=== PATIENT | female | born 1975 | race Caucasian/White ===

== ENCOUNTER 2017-08-08 08:30 | Emergency (ER) | payer OTHER ==
[~2017-08-08 08:30] MED LIST: ACET-1966 PO; CALC500T42 PO; CEP500 PO; CEPH-13 PO; CIPR-344 PO; CYC10 PO; CYCL10TA29 PO; DICY-42 PO; ERG400 PO; FERR27TA3 PO; FLAX100042 PO; HYDR-3250 PO; KET10 PO; LOR5/325 PO; MULT-1335 PO; ONDA4TAB PO; PER PO; PRE20 PO; PROM-110 PO; VITA1CAP46 PO
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
[2017-08-08] MEDS ORDERED: fentaNYL CITR 100 MCG/2 ML AMP IVP ONE (10:05)
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
[2017-08-08 11:00] VITALS: BP 125/65
[2017-08-08] MEDS ORDERED: LOR5/325 PO (11:44)
[2017-08-08] MEDS ORDERED: DIA5 PO (11:49)
[2017-08-08] MEDS ORDERED: APAP/HYDROCODONE 325/5 TAB PO ONE (11:50)
== END 2017-08-08 11:54 | disposition home or self-care (01) ==
LOC: ER 08:30
DX: S52.292A Other fracture of shaft of left ulna, initial encounter for closed fracture (principal); V43.52XA Car driver injured in collision with other type car in traffic accident, initial encounter
CPT/HCPCS: 29125; 70450; 71045; 72125; 73060; 73080; 73090; 73110; 84703; 96374; 99284; A4565; J3010

== ENCOUNTER 2017-10-10 22:59 | Emergency (ER) | payer SELFPAY ==
[~2017-10-10 22:59] MED LIST changes: +DIA5 PO
[2017-10-10] MEDS ORDERED: predniSONE 20 MG TAB PO ONE (23:25)
[2017-10-10] MEDS ORDERED: diphenhydrAMINE 25 MG CAP PO ONE (23:25)
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
[2017-10-10] MEDS ORDERED: METH4TAB66 PO (23:28)
[2017-10-10 23:45] VITALS: BP 105/73
[2017-10-11] MEDS ORDERED: METH4TAB66 PO (00:11)
== END 2017-10-10 23:48 | disposition home or self-care (01) ==
LOC: ER 23:12
DX: L50.9 Urticaria, unspecified (principal)
CPT/HCPCS: 99283; J7512; Q0163

== ENCOUNTER 2017-12-20 15:36 | Emergency (ER) | payer SELFPAY ==
[~2017-12-20 15:36] MED LIST changes: +METH4TAB66 PO
--- NOTE | 2017-12-20 15:40 | ER Report ---
History and Physical Time Seen By MD: 15:39 HPI/ROS CHIEF COMPLAINT: Left upper dental fracture HISTORY OF PRESENT ILLNESS: Patient is a 42-year-old female with poor dentition here with complaints of left upper dental pain for the past several days and facial swelling on left side. Patient reports that the symptoms have worsened over the past several days however today she sought evaluation due to increased swelling of the face. Patient has not attempted to obtain dentistry evaluation due to lack of access. Patient is afebrile, hemodynamically stable at time of evaluation. REVIEW OF SYSTEMS: ENT: + dental fracture with surrounding edema and tenderness Respiratory: No cough, no dyspnea. Neuro: No focal neuro deficits Allergies: Coded Allergies: promethazine (Verified Adverse Reaction, Intermediate, 08/08/17) Uncoded Allergies: HAYFEVER (Allergy, Mild, UNKNOWN, 10/09/11) Home Meds Active Scripts Tramadol Hcl (TRAMADOL HCL) 50 Mg Tablet, 50 MG PO Q6H Y for PAIN, #12 TAB 0 Refills Prov:FALL,DANA S DO 12/20/17 Penicillin V Potassium 500 Mg Tab (PENICILLIN V POTASSIUM 500 MG TAB) 500 Mg Tablet, 500 MG PO QID for 7 Days, #28 TAB Prov:FALL,DANA S DO 12/20/17 Discontinued Scripts Methylprednisolone (METHYLPREDNISOLONE) 4 Mg Tab.ds.pk, 4 MG PO DIRECTED, #1 TAB Prov:LAURORA,RADHA V DO 10/11/17 Methylprednisolone (METHYLPREDNISOLONE) 4 Mg Tab.ds.pk, 4 MG PO DIRECTED, #1 TAB Prov:LAURORA,RADHA V DO 10/10/17 Hx Smoking: Yes Smoking Status: Current: Every Day Smoker Hx Substance Use Disorder: No Hx Alcohol Use: Yes (RARE) Constitutional Vital Sign - Last 24 Hours 12/20/17 12/20/17 12/20/17 12/20/17 15:39 15:40 15:46 15:54 Temp 98.2 Pulse 72 92 Resp 20 B/P (MAP) 145/71 (95) 145/71 136/82 (100) Pulse Ox 95 96 O2 Delivery Room Air 12/20/17 12/20/17 16:00 16:03 B/P (MAP) 125/55 (78) 123/85 (98) Physical Exam General Appearance: The patient is alert, has no immediate need for airway protection and no current signs of toxicity. Moderate distress secondary to pain ENT: + Poor dentition, dental carries and fracture of left upper tooth with mild edema Eyes: Pupils equal and round no injection. Skin: No rashes or lesions. Neuro: No focal neuro deficits DIFFERENTIAL DIAGNOSIS: After history and physical exam differential diagnosis was considered for dental fracture, dental Carries, dental abscess Medical Decision Making ED Course/Re-evaluation ED Course Patient is a 42-year-old female here with complaints of dental pain which has become severe the past several days making it difficult to chew food. Today she reports having left-sided facial swelling which is subtle. Patient is afebrile, hemodynamically stable. A superior alveolar nerve block was completed using 4 mL of bupivacaine with epinephrine which gave moderate relief of pain. Patient was given Toradol for analgesia. Patient was given scripts for penicillin for antimicrobial coverage, tramadol for analgesia in the outpatient setting and advised to follow-up with dentistry for definitive management. Procedure Superior alveolar dental block: A nerve block was performed using 4 mL of bupivacaine with epinephrine 0.5%. The formula was infiltrated and upon reevaluation patient had moderate relief of pain. Patient tolerated the procedure well Decision to Disposition Date: Dec 20, 2017 Decision to Disposition Time: 15:57 Depart Departure Latest Vital Signs Vital Signs Date Time Temp Pulse Resp B/P (MAP) Pulse Ox O2 Delivery O2 Flow Rate FiO2 12/20/17 16:03 123/85 (98) 12/20/17 15:46 92 96 12/20/17 15:40 98.2 20 Room Air Impression: Primary Impression: Dental abscess Condition: Improved Disposition: HOME OR SELF-CARE New Scripts Tramadol Hcl (TRAMADOL HCL) 50 Mg Tablet 50 MG PO Q6H Y for PAIN, #12 TAB 0 Refills Prov: DANA FALL DO 12/20/17 Penicillin V Potassium 500 Mg Tab (PENICILLIN V POTASSIUM 500 MG TAB) 500 Mg Tablet 500 MG PO QID for 7 Days, #28 TAB Prov: DANA FALL DO 12/20/17 Patient Instructions: Dental Abscess (ED) Additional Instructions: Please take one tablet 4 times a day for 7 days of penicillin. You may take naproxen 500 mg every 12 hours as needed for pain. You may take 1 tramadol every 6-8 hours as needed for breakthrough pain. Please follow-up with a dentist within 1 week for definitive intervention. Please return promptly if you develop fevers, headaches, blurred vision, double vision, difficulty swallowing, increased facial swelling DANA FALL DO Dec 20, 2017 15:39
[2017-12-20] MEDS ORDERED: KETOROLAC 60 MG/2 ML VIAL IM ONE (15:50)
[2017-12-20] MEDS ORDERED: TRAM-420 PO (15:52)
[2017-12-20] MEDS ORDERED: PENI-24 PO (15:52)
[2017-12-20 16:03] VITALS: BP 123/85
== END 2017-12-20 16:07 | disposition home or self-care (01) ==
LOC: ER 15:45
DX: K04.7 Periapical abscess without sinus (principal); K08.89 Other specified disorders of teeth and supporting structures
CPT/HCPCS: 64400; 96372; 99283; J1885

== ENCOUNTER 2018-01-08 00:03 | Emergency (ER) | payer SELFPAY ==
[~2018-01-08 00:03] MED LIST changes: +PENI-24 PO; +TRAM-420 PO
--- NOTE | 2018-01-08 00:04 | ER Report ---
History and Physical Time Seen By MD: 00:04 HPI/RAYSHAWN CHIEF COMPLAINT: Chest and back pain HISTORY OF PRESENT ILLNESS: 42-year-old female presents with a week of back pain which radiates around to the front of her chest. She notes she has chest pain. She denies history of cardiac disease. He works as a gas engine mechanic. His been taking excessive doses of Tylenol and ibuprofen attempting to relieve her symptoms. Patient was seen here 12/20/17 for toothache. She was prescribed tramadol and amoxicillin. Patient denies shortness of breath, diaphoresis or nausea. Patient states she's had this before. REVIEW OF SYSTEMS: Respiratory: No cough, no dyspnea. Cardiovascular: As above Gastrointestinal: No vomiting, no abdominal pain. Musculoskeletal: As above Allergies: Coded Allergies: promethazine (Verified Adverse Reaction, Intermediate, 08/08/17) Uncoded Allergies: HAYFEVER (Allergy, Mild, UNKNOWN, 10/09/11) Home Meds Active Scripts Tramadol Hcl (TRAMADOL HCL) 50 Mg Tablet, 1 TAB PO Q6H PRN for PAIN, #12 MG TAKE ONE TABLETS BY MOUTH EVERY SIX HOURS NEEDED Prov:DEMETRICE ROSA DO 01/08/18 Methocarbamol (ROBAXIN-750) 750 Mg Tablet, 1-2 TAB PO TID PRN for back spasm relief, #20 Prov:DEMETRICE ROSA DO 01/08/18 Discontinued Scripts Tramadol Hcl (TRAMADOL HCL) 50 Mg Tablet, 50 MG PO Q6H PRN for PAIN, #12 TAB 0 Refills Prov:DANA FALL DO 12/20/17 Penicillin V Potassium 500 Mg Tab (PENICILLIN V POTASSIUM 500 MG TAB) 500 Mg Tablet, 500 MG PO QID for 7 Days, #28 TAB Prov:DANA FALL DO 12/20/17 Reviewed Nurses Notes: Yes Old Medical Records Reviewed: Yes Hx Smoking: Yes Smoking Status: Current: Every Day Smoker Hx Substance Use Disorder: No Hx Alcohol Use: Yes (RARE) Constitutional Vital Sign - Last 24 Hours 01/08/18 01/08/18 01/08/18 01/08/18 00:06 00:18 00:30 00:33 Temp 97.4 Pulse 68 65 59 Resp 16 B/P (MAP) 119/74 128/68 (88) Pulse Ox 98 99 100 O2 Delivery Room Air 01/08/18 01/08/18 01:01 01:03 Pulse 71 B/P (MAP) 138/81 (100) Pulse Ox 98 Physical Exam General Appearance: The patient is alert, has no immediate need for airway protection and no current signs of toxicity. Vital signs stable, afebrile HEENT: Pupils equal and round no injection. Oropharynx without redness or exudate, mucous members are moist Respiratory: Chest is non tender, lungs are clear to auscultation. No chest wall tenderness Cardiac: regular rate and rhythm, no murmur Gastrointestinal: Abdomen is soft and non tender, no masses, bowel sounds normal. Musculoskeletal: Neck: Neck is supple and non tender. Back: There is tenderness in the thoracic or spinous musculature at approximately T8 and 9 along the midline Extremities have full range of motion and are non tender. Skin: No rashes or lesions. DIFFERENTIAL DIAGNOSIS: After history and physical exam differential diagnosis was considered for back pain including but not limited to muscular pain, herniated disc, spine fracture, intra-abdominal causes and urinary tract infection. Medical Decision Making EKG/Imaging EKG Interpretation 12 lead EKG: Rhythm: normal sinus rhythm [place]: normal QRS: normal ST segments: normal, no evidence of ischemia Imaging X-ray: Two-view chest x-ray was obtained. I viewed the images myself on the PACS system. My interpretation of the images is: No infiltrate, no effusion, normal mediastinum. The radiologist interpretation had no clinically significant variation from this interpretation. ED Course/Re-evaluation ED Course Patient was admitted to an examination room. H&P was done. The differential diagnoses was considered. Patient was severe back pain for one week now radiating around her chest cavity to the front. She's noting pain along her sternum. She states she's had this before. She denies cardiac disease. Diagnostic EKG is unremarkable for evidence of ischemia. A chest x-ray shows no pathology. Patient be treated with Robaxin and tramadol for symptomatically relief. Chin advised to apply heating pad to her back. She is advised to restrict her ibuprofen intake to no more than 12 pills and 24 hours. Decision to Disposition Date: Jan 08, 2018 Decision to Disposition Time: 01:06 Depart Departure Latest Vital Signs Vital Signs Date Time Temp Pulse Resp B/P (MAP) Pulse Ox O2 Delivery O2 Flow Rate FiO2 01/08/18 01:03 71 98 01/08/18 01:01 138/81 (100) 01/08/18 00:06 97.4 16 Room Air Impression: Primary Impression: Thoracic myofascial strain Additional Impression: Chest wall pain Condition: Improved Disposition: HOME OR SELF-CARE New Scripts Tramadol Hcl (TRAMADOL HCL) 50 Mg Tablet 1 TAB PO Q6H PRN for PAIN, #12 MG TAKE ONE TABLETS BY MOUTH EVERY SIX HOURS NEEDED Prov: DEMETRICE ROSA DO 01/08/18 Methocarbamol (ROBAXIN-750) 750 Mg Tablet 1-2 TAB PO TID PRN for back spasm relief, #20 Prov: DEMETRICE ROSA DO 01/08/18 Patient Instructions: Thoracic Back Strain (ED) Additional Instructions: Take ibuprofen 200 mg 3-4 tablets 3 times a day, do not exceed 12 tablets in 24 hours Apply heating pad to your back area Follow-up with primary care if unimproved in 3-5 days. Problem Qualifiers Primary Impression: Thoracic myofascial strain Encounter type: initial encounter Qualified Codes: S29.019A - Strain of muscle and tendon of unspecified wall of thorax, initial encounter DEMETRICE ROSA DO Jan 08, 2018 00:04
--- NOTE | 2018-01-08 00:34 | EKG ---
[facility]AC[facility] PATIENT NAME: BRIDGET LAY : [id number] MR: [id number]: [id number] EXAM DATE: ORDERING PHYSICIAN: DEMETRICE ROSA TECHNOLOGIST: HOME Test Reason : MUSCLE PAIN Blood Pressure : / mmHG Vent. Rate : 056 BPM Atrial Rate : 056 BPM P-R Int : 118 ms QRS Dur : 080 ms QT Int : 428 ms P-R-T Axes : 059 060 047 degrees QTc Int : 413 ms Sinus bradycardia No acute appearing findings No previous ECGs available Confirmed by YANA JEAN ([id number]) on 01/08/2018 6:28:07 AM Referred By: Confirmed By:YANA JEAN
[2018-01-08 01:01] VITALS: BP 138/81
[2018-01-08] MEDS ORDERED: TRAM-420 PO (01:08)
[2018-01-08] MEDS ORDERED: METH-543 PO (01:08)
[2018-01-08] MEDS ORDERED: METHOCARBAMOL 500 MG TAB PO ONE (01:10)
[2018-01-08] MEDS ORDERED: traMADol 50 MG TAB TH 2 TAB/BOTTLE PO ONE (01:10)
--- NOTE | 2018-01-08 01:35 | RADIOLOGY IMAGING REPORT ---
FACILITY: [facility] PATIENT NAME: Nahomy Hunter : 1975 MR: [id number] V: [id number] EXAM DATE: ORDERING PHYSICIAN: DEMETRICE ROSA TECHNOLOGIST: Location: [facility] Patient: Nahomy Hunter : 1975 Visit/Account:[id number] Date of Sevice: 01/08/2018 TWO VIEW CHEST 01/08/2018 12:14 AM. INDICATION: severe back and chest pain COMPARISON: 08/08/2017. FINDINGS: Lungs are well-expanded. The lungs are clear. No pneumothorax or pleural effusion. Pulmo nary vasculature is unremarkable. Heart size is normal. Cholecystectomy clips. IMPRESSION: No acute abnormality or significant change. Report Dictated By: Juarez Ceron MD at 01/08/2018 1:31 AM Report E-Signed By: Juarez Ceron MD at 01/08/2018 1:32 AM WSN:[id number]
== END 2018-01-08 01:17 | disposition home or self-care (01) ==
LOC: ER 00:30
DX: S29.019A Strain of muscle and tendon of unspecified wall of thorax, initial encounter (principal); R07.89 Other chest pain
CPT/HCPCS: 71046; 93005; 99283; C9399